=== PATIENT | female | born 1965 | race African-American/Black ===

== ENCOUNTER 2023-02-22 14:02 | Inpatient (IN) | payer OTHER ==
[2023-02-22 15:15] VITALS: BMI 31.6
[2023-02-22] MEDS ORDERED: MAG HYDROX/AL HYDROX/SIMETH 30 ML UNIT-DOSE CUP PO PRN (17:39)
[2023-02-22] MEDS ORDERED: P-EPHED 60MG/TRIPROLIDI 2.5MG TABLET PO PRN (17:39)
[2023-02-22] MEDS ORDERED: BISMUTH SUBSALICYLATE 524 MG/30 ML PO PRN (17:39)
[2023-02-22] MEDS ORDERED: BENZOCAINE/MENTHOL (CHLORASEPTIC ) LOZENGE MM PRN (17:39)
[2023-02-22] MEDS ORDERED: ONDANSETRON *ODT* 4 MG TABLET SL PRN (17:39)
[2023-02-22] MEDS ORDERED: guaiFENesin 600 MG TABLET.ER (FP) PO PRN (17:39)
[2023-02-22] MEDS ORDERED: MAGNESIUM HYDROX 2400MG/30ML ORAL SUSPENSION 30 ML CUP PO PRN (17:39)
[2023-02-22] MEDS ORDERED: BENZONATATE 200 MG CAPSULE PO PRN (17:39)
[2023-02-22] MEDS ORDERED: ACETAMINOPHEN 325 MG TABLET (FP) PO PRN (17:39)
[2023-02-22] MEDS ORDERED: POLYETHYLENE GLYCOL (HEALTHYLAX) 3350 17 GM PACKET PO PRN (17:39)
[2023-02-22] MEDS: IBUPROFEN 600 MG TABLET (FP) PO PRN (20:21)
[2023-02-22] MEDS: diazePAM 5 MG TABLET PO PRN (20:21)
[2023-02-22] MEDS: hydrOXYzine PAMOATE 25 MG CAPSULE (FP) PO PRN (20:21)
[2023-02-22] MEDS: MELATONIN 5 MG TABLETS PO SCH (22:29)
[2023-02-22] MEDS: THIAMINE HCL 100 MG TABLET (FP) PO SCH (22:30)
[2023-02-23] MEDS: PRENATAL VITAMINS W/ FOLIC ACID TABLET (FP) PO SCH (10:24)
[2023-02-23 10:25] LABS: HEMATOCRIT 39.2 % (32.4-45.2); HEMOGLOBIN 13.1 GM/dL (10.7-15.3); MCHC 33.5 g/dl (32.0-36.0); MEAN CELL VOLUME 98.7 fl (80-96); MEAN PLT VOLUME 9.3 fl (7.5-11.1); PLATELET COUNT 105 10^3/uL (134-434); RBC 3.97 M/mm3 (3.60-5.2); RDW 18.5 % (11.6-15.6); WHITE BLOOD COUNT 2.6 K/mm3 (4.0-10.0)
[2023-02-23] MEDS: IBUPROFEN 400 MG TABLET (FP) PO PRN (10:25)
[2023-02-23 10:41] LABS: CALCIUM 9.6 mg/dL (8.5-10.1)
[2023-02-23 10:42] LABS: ALBUMIN 3.1 g/dl (3.4-5.0); BLOOD UREA NITROGEN 9.8 mg/dL (7-18)
[2023-02-23 10:45] LABS: CREATININE 0.5 mg/dL (0.55-1.3)
[2023-02-23 10:47] LABS: TOT PROT 6.3 g/dl (6.4-8.2)
[2023-02-23] MEDS: hydrOXYzine PAMOATE 25 MG CAPSULE (FP) PO PRN ×2 (13:41→17:30)
[2023-02-23] MEDS: DICYCLOMINE HCL 10 MG CAPSULE PO PRN ×2 (13:44→22:19)
[2023-02-23] MEDS: LOPERAMIDE HCL 2 MG CAPSULE PO PRN ×2 (13:44→22:19)
[2023-02-23] MEDS: diazePAM 5 MG TABLET PO PRN ×2 (17:28→22:16)
[2023-02-23] MEDS: THIAMINE HCL 100 MG TABLET (FP) PO SCH (22:16)
[2023-02-23] MEDS: MELATONIN 5 MG TABLETS PO SCH (22:16)
[2023-02-24] MEDS ORDERED: chlordiazePOXIDE HCL 25 MG CAPSULE PO PRN (08:48)
[2023-02-24] MEDS: PRENATAL VITAMINS W/ FOLIC ACID TABLET (FP) PO SCH (10:04)
[2023-02-24] MEDS: chlordiazePOXIDE HCL 25 MG CAPSULE PO SCH ×3 (10:05→22:06)
[2023-02-24] MEDS: hydrOXYzine PAMOATE 25 MG CAPSULE (FP) PO PRN (10:05)
[2023-02-24] MEDS: POTASSIUM CHLORIDE ORAL LIQUID 20 MEQ/15 ML PO SCH ×3 (10:05→17:19)
[2023-02-24] MEDS: IBUPROFEN 600 MG TABLET (FP) PO PRN ×2 (10:07→22:13)
[2023-02-24] MEDS: MELATONIN 5 MG TABLETS PO SCH (22:06)
[2023-02-24] MEDS: THIAMINE HCL 100 MG TABLET (FP) PO SCH (22:06)
[2023-02-25] MEDS: chlordiazePOXIDE HCL 25 MG CAPSULE PO SCH ×4 (05:52→22:01)
[2023-02-25] MEDS: PRENATAL VITAMINS W/ FOLIC ACID TABLET (FP) PO SCH (10:21)
[2023-02-25 11:23] LABS: MCH 33.4 pg (25.7-33.7); MCHC 33.3 g/dl (32.0-36.0); MEAN CELL VOLUME 100.2 fl (80-96); MEAN PLT VOLUME 9.1 fl (7.5-11.1); PLATELET COUNT 118 10^3/uL (134-434); RBC 3.89 M/mm3 (3.60-5.2); WHITE BLOOD COUNT 2.6 K/mm3 (4.0-10.0)
[2023-02-25 11:59] LABS: ANISOCYTOSIS 1+; MACROCYTOSIS 1+; PLATELET ESTIMATE DECREASED
[2023-02-25] MEDS: THIAMINE HCL 100 MG TABLET (FP) PO SCH (22:01)
[2023-02-25] MEDS: MELATONIN 5 MG TABLETS PO SCH (22:01)
[2023-02-25] MEDS: IBUPROFEN 600 MG TABLET (FP) PO PRN (22:02)
[2023-02-26] MEDS: chlordiazePOXIDE HCL 25 MG CAPSULE PO SCH ×2 (05:31→10:10)
[2023-02-26] MEDS: PRENATAL VITAMINS W/ FOLIC ACID TABLET (FP) PO SCH (10:06)
[2023-02-26] MEDS: IBUPROFEN 400 MG TABLET (FP) PO PRN (10:09)
[2023-02-26] MEDS: LORazepam 1 MG TABLET PO SCH ×3 (14:15→22:24)
[2023-02-26] MEDS: THIAMINE HCL 100 MG TABLET (FP) PO SCH (22:24)
[2023-02-26] MEDS: MELATONIN 5 MG TABLETS PO SCH (22:24)
[2023-02-27] MEDS ORDERED: chlordiazePOXIDE HCL 10 MG CAPSULE PO PRN
[2023-02-27] MEDS ORDERED: chlordiazePOXIDE HCL 10 MG CAPSULE PO SCH (05:00)
[2023-02-27] MEDS: LORazepam 0.5 MG TABLET PO SCH ×4 (06:00→22:23)
[2023-02-27 09:31] VITALS: RESP 18
[2023-02-27] MEDS: PRENATAL VITAMINS W/ FOLIC ACID TABLET (FP) PO SCH (10:06)
[2023-02-27] MEDS: IBUPROFEN 600 MG TABLET (FP) PO PRN (10:07)
[2023-02-27] MEDS: THIAMINE HCL 100 MG TABLET (FP) PO SCH (22:23)
[2023-02-27] MEDS: MELATONIN 5 MG TABLETS PO SCH (22:23)
[2023-02-28] MEDS ORDERED: LORazepam 0.5 MG TABLET PO ONE (05:00)
[2023-02-28] MEDS ORDERED: chlordiazePOXIDE HCL 10 MG CAPSULE PO SCH (05:00)
[2023-02-28] MEDS: IBUPROFEN 600 MG TABLET (FP) PO PRN (06:13)
[2023-02-28 09:42] VITALS: BP 110/78; PULSE 82; TEMP 97.5
[2023-02-28] MEDS: PRENATAL VITAMINS W/ FOLIC ACID TABLET (FP) PO SCH (10:24)
[2023-03-01] MEDS ORDERED: chlordiazePOXIDE HCL 10 MG CAPSULE PO ONE (05:00)
== END 2023-02-28 11:17 | disposition home or self-care (01) | DRG 775 ==
LOC: YASAS 14:02 → Y6N 18:58 → UNDOADMIN 18:58
PROVIDERS: ADMIT Allergy & Immunology; ATTEND Surgery
PROC: HZ2ZZZZ Detoxification Services for Substance Abuse Treatment (ICD-10-PCS; principal; 2023-02-22)
DX: F10.230 Alcohol dependence with withdrawal, uncomplicated (principal); F12.20 Cannabis dependence, uncomplicated
CPT/HCPCS: 36415; 80053; 84132; 85025; 85027; 86780; 87811; 93005; 93010; C9803-CS; Q0162; U0003; U0005

== ENCOUNTER 2024-08-11 21:32 | Inpatient (IN) | payer OTHER ==
[2024-08-12 00:59] VITALS: BMI 26.2
[2024-08-12] MEDS ORDERED: NALOXONE (NARCAN) HCL 4 MG/0.1 ML SPRAY NS PRN (01:37)
[2024-08-12] MEDS ORDERED: IBUPROFEN 600 MG TABLET (FP) PO PRN (01:37)
[2024-08-12] MEDS ORDERED: BISMUTH SUBSALICYLATE 524 MG/30 ML PO PRN (01:37)
[2024-08-12] MEDS ORDERED: IBUPROFEN 400 MG TABLET (FP) PO PRN (01:37)
[2024-08-12] MEDS ORDERED: NALOXONE HCL 0.4 MG/ML VIAL IM PRN (01:37)
[2024-08-12] MEDS ORDERED: DICYCLOMINE HCL 10 MG CAPSULE PO PRN (01:37)
[2024-08-12] MEDS ORDERED: ACETAMINOPHEN 325 MG TABLET (FP) PO PRN (01:37)
[2024-08-12] MEDS ORDERED: BENZONATATE 200 MG CAPSULE PO PRN (01:37)
[2024-08-12] MEDS ORDERED: ONDANSETRON *ODT* 4 MG TABLET SL PRN (01:37)
[2024-08-12] MEDS ORDERED: guaiFENesin 600 MG TABLET.ER (FP) PO PRN (01:37)
[2024-08-12] MEDS ORDERED: LOPERAMIDE HCL 2 MG CAPSULE PO PRN (01:37)
[2024-08-12] MEDS: chlordiazePOXIDE HCL 25 MG CAPSULE PO PRN (02:00)
[2024-08-12] MEDS: chlordiazePOXIDE HCL 25 MG CAPSULE PO SCH (05:52)
[2024-08-12] MEDS ORDERED: chlordiazePOXIDE HCL 25 MG CAPSULE ONE ×2 (05:52→10:19)
[2024-08-12] MEDS: PRENATAL VITAMINS W/ FOLIC ACID TABLET (FP) PO SCH (10:19)
[2024-08-12] MEDS ORDERED: PRENATAL VITAMINS W/ FOLIC ACID TABLET (FP) PO ONE (10:19)
[2024-08-12] MEDS: MELATONIN 5 MG TABLETS PO SCH (22:39)
[2024-08-12] MEDS: THIAMINE 100 MG TABLET PO SCH (22:39)
[2024-08-13] MEDS: chlordiazePOXIDE HCL 25 MG CAPSULE PO SCH (05:30)
[2024-08-13 11:19] LABS: HEMATOCRIT 35.3 % (32.4-45.2); HEMOGLOBIN 11.9 GM/dL (10.7-15.3); MCH 32.3 pg (25.7-33.7); MCHC 33.7 g/dl (32.0-36.0); MEAN CELL VOLUME 95.9 fl (80-96); PLATELET COUNT 162 10^3/uL (134-434); RBC 3.68 M/mm3 (3.60-5.2); RDW 14.8 % (11.6-15.6); WHITE BLOOD COUNT 4.5 K/mm3 (4.0-10.0)
[2024-08-13 11:51] LABS: POTASSIUM 4.1 mmol/L (3.5-5.1)
[2024-08-13 12:19] LABS: ALBUMIN 3.1 g/dl (3.4-5.0)
[2024-08-13 12:20] LABS: BLOOD UREA NITROGEN 18.8 mg/dL (7-18); CALCIUM 10.7 mg/dL (8.5-10.1)
[2024-08-13 12:22] LABS: CREATININE 0.8 mg/dL (0.55-1.3)
[2024-08-13 12:24] LABS: BILIRUBIN,TOTAL 0.6 mg/dL (0.2-1)
[2024-08-13] MEDS: METHOCARBAMOL 500 MG TABLET PO PRN (22:41)
[2024-08-14] MEDS ORDERED: chlordiazePOXIDE HCL 10 MG CAPSULE PO PRN
[2024-08-14] MEDS: chlordiazePOXIDE HCL 10 MG CAPSULE PO SCH (05:27)
[2024-08-14] MEDS: BENZOCAINE/MENTHOL (CHLORASEPTIC ) LOZENGE MM PRN (11:54)
[2024-08-14] MEDS: MAGNESIUM HYDROX 2400MG/30ML ORAL SUSPENSION 30 ML CUP PO PRN (17:29)
[2024-08-14] MEDS: POLYETHYLENE GLYCOL (HEALTHYLAX) 3350 17 GM PACKET PO PRN (20:43)
[2024-08-15] MEDS: chlordiazePOXIDE HCL 10 MG CAPSULE PO SCH (05:46)
[2024-08-15] MEDS: hydrOXYzine PAMOATE 25 MG CAPSULE (FP) PO PRN (10:23)
[2024-08-16] MEDS: chlordiazePOXIDE HCL 10 MG CAPSULE PO ONE (05:42)
[2024-08-16] MEDS: BISACODYL 5 MG TABLET.DR (FP) PO ONE (15:32)
[2024-08-16] MEDS: MINERAL OIL/PETROLAT/WATER TOPICAL CREAM 113 GM JAR TP SCH (18:57)
[2024-08-16] MEDS: MINERAL OIL/PETROLAT/WATER TOPICAL CREAM 113 GM JAR TP ONE (19:00)
[2024-08-16] MEDS: MAG HYDROX/AL HYDROX/SIMETH 30 ML UNIT-DOSE CUP PO PRN (21:10)
[2024-08-17 06:15] VITALS: RESP 16
[2024-08-17 09:36] VITALS: BP 119/83; PULSE 67; TEMP 97.7
[2024-08-17] MEDS: NALTREXONE HCL 50 MG TABLET PO ONE (09:36)
[2024-08-17] MEDS: PSYLLIUM 5.85 GM PACKET PO SCH (09:37)
== END 2024-08-17 09:43 | disposition home or self-care (01) | DRG 774 ==
LOC: YASAS 21:32 → Y3N 08-12 13:58
PROVIDERS: ADMIT Allergy & Immunology; ATTEND Surgery
PROC: HZ2ZZZZ Detoxification Services for Substance Abuse Treatment (ICD-10-PCS; principal; 2024-08-12)
DX: F10.230 Alcohol dependence with withdrawal, uncomplicated (principal); F14.20 Cocaine dependence, uncomplicated; F12.20 Cannabis dependence, uncomplicated; F41.9 Anxiety disorder, unspecified; Z59.00 Homelessness unspecified
CPT/HCPCS: 36415; 80053; 80305; 80307; 85027; 86780; 93005; 93010